=== PATIENT | male | born 1955 | race Caucasian/White ===

== ENCOUNTER → 2016-04-15 | Outpatient (CLI) | payer MEDICARE ==
[~2016-04-15] VITALS: Ht 172.7 cm; Wt 56.5 kg
[~2016-04-15] MED LIST: BIOT50005 PO; CHOL5000 PO; GINS100C2 PO; MULTTAB67 PO; PROPOFOL 200 MG/20 ML AMP IV ONE; UMEC1INH INH; [UNRECOGNIZED DRUG - OTHER] PO; [UNRECOGNIZED DRUG - OTHER] PO; [UNRECOGNIZED DRUG - OTHER] SL
[2016-04-15 10:08] VITALS: BP 134/91; PULSE 67; RESP 16; TEMP 98.9; O2SAT 98
[2016-04-15 11:04] VITALS: BP 98/69; PULSE 71; RESP 16; O2SAT 95
--- NOTE | 2016-04-15 17:37 | EKG ---
Date Performed: 04/15/2016 Time Performed: 09:41:10 PTAGE: 61 years EKG: Sinus rhythm WITH FIRST DEGREE AV BLOCK MINIMAL ST DEPRESSION ABNORMAL ECG NO PREVIOUS TRACING DOCTOR: Miky Galan Interpretating Date/Time 04/15/2016 17:36:36
== END ==
LOC: HEND 08:58
PROVIDERS: ATTEND Internal Medicine Gastroenterology
DX: Z12.11 Encounter for screening for malignant neoplasm of colon (principal); Z80.0 Family history of malignant neoplasm of digestive organs; K62.89 Other specified diseases of anus and rectum; K64.4 Residual hemorrhoidal skin tags; K64.8 Other hemorrhoids; K44.9 Diaphragmatic hernia without obstruction or gangrene; R10.13 Epigastric pain; R11.0 Nausea; I44.0 Atrioventricular block, first degree
CPT/HCPCS: 88305; 93005

== ENCOUNTER → 2017-03-11 | Outpatient (CLI) | payer MEDICARE ==
[~2017-03-11] MED LIST changes: -PROPOFOL 200 MG/20 ML AMP IV ONE
--- NOTE | 2017-03-12 12:19 | RSPPFT ---
DATE OF PROCEDURE: 03/11/17 COMMENTS: Spirometry with FVC of 4.1 at 103% of predicted, FEV1 of 1.7 at 54%, FEV1/FVC ratio is decreased. Flow is decreased at FEF 25, FEF 50, FEF 75 and FEF 25-75. Lung volumes show residual volume is increased. TLC is normal. Diffusion capacity is decreased. Flow volume loop indicates an obstructive pattern. IMPRESSION: 1. Moderately severe obstructive lung disease. 2. Post-bronchodilator study was not done. 3. Lung volumes show hyperinflation. 4. Decreased diffusion capacity.
== END ==
LOC: HRSP 13:03
PROVIDERS: ATTEND Specialist
DX: J44.9 Chronic obstructive pulmonary disease, unspecified (principal)
CPT/HCPCS: 94010; 94726; 94729